=== PATIENT | female | born 1955 | race Caucasian/White ===

== ENCOUNTER 2017-01-27 13:05 | Emergency (ER) | payer OTHER ==
[~2017-01-27] VITALS: Ht 160 cm; Wt 54.7 kg
[2017-01-27 13:05] VITALS: BP 127/79
[2017-01-27] MEDS ORDERED: ZOLO25TA PO (13:22)
[2017-01-27] MEDS ORDERED: BUPR10TASR PO (13:22)
[2017-01-27] MEDS ORDERED: BACIOIN7 TOP (13:38)
[2017-01-27] MEDS ORDERED: ADACEL/BOOSTRIX VACCINE (DIPHTH/PERTUSS/ACELL/TETANUS)0.5ML SYR (90715) IM ONE (13:45)
--- NOTE | 2017-01-27 14:32 | REP ---
Clinical: Trauma. Technique: AP and lateral views of the left forearm. Findings: No acute fracture dislocation. Skeletal structures, joint spaces, and surrounding soft tissues are normal. Impression: No acute fracture or dislocation. Signed by Mike Kaufman MD 01/27/2017 02:24 P
== END 2017-01-27 14:44 | disposition home or self-care (01) ==
LOC: M ED 14:38
DX: S50.12XA Contusion of left forearm, initial encounter (principal); S50.812A Abrasion of left forearm, initial encounter; W01.198A Fall on same level from slipping, tripping and stumbling with subsequent striking against other object, initial encounter; Y92.099 Unspecified place in other non-institutional residence as the place of occurrence of the external cause; Y93.01 Activity, walking, marching and hiking; Y99.9 Unspecified external cause status